=== PATIENT | male | born 1995 | race Two or more races ===

== ENCOUNTER 2021-10-01 17:39 | Emergency (ER) | payer OTHER ==
[~2021-10-01] VITALS: Ht 165.1 cm; Wt 65.3 kg
--- NOTE | 2021-10-01 17:39 | NUR ---
PT BIBRA [address] C/O METH USED. PT IS AAOX3, NOT IN RESPIRATORY DISTRESS, HOOKED TO V/S STABLE, KEPT RESTED AND COMFORTABLE. WILL CONTINUE TO MONITOR.
--- NOTE | 2021-10-01 21:38 | NUR ---
PT OK TO DISCHARGE PER DR FRANCES. Patient discharged to home in stable condition. Written and verbal after care instructions given. Patient verbalizes understanding of instruction.Patient is awake and alert to self, day, and place. PT ambulatory with a steady gait
[2021-10-01 21:39] VITALS: BP 119/71
== END 2021-10-01 21:39 | disposition home or self-care (01) ==
LOC: ER 17:44
DX: F15.10 Other stimulant abuse, uncomplicated (principal)

== ENCOUNTER 2021-10-02 00:13 | Inpatient (IN) | payer OTHER ==
[~2021-10-02] VITALS: Ht 165.1 cm; Wt 73.5 kg
--- NOTE | 2021-10-02 01:05 | NUR ---
TO ER BED 15. BIBRA [address] FOR BEHAVIORAL "ACTING BIZARRE". CONNECTED TO MONITOR. BELONGING OBTAINED AND SECURED. NOT IN RESPIRATORY DISTRESS. AWAITING MD NUNN
[2021-10-02] MEDS ORDERED: OLANZAPINE 10 MG VIAL IM ONE ×2 (01:06→01:30)
--- NOTE | 2021-10-02 01:10 | NUR ---
URINE COLLECTED AND SENT TO LAB.
--- NOTE | 2021-10-02 01:12 | NUR ---
FOREST RESOURCES PROFESSOR AT BEDSIDE FOR BLOOD DRAW.
[2021-10-02 01:32] LABS: BASOPHILS % (AUTO) 0.1 % (0.0-2.0); HEMATOCRIT 40 % (39-51); HEMOGLOBIN 13.9 g/dL (13.5-17.5); LYMPHOCYTES # (AUTO) 1.4 K/uL (0.8-4.8); LYMPHOCYTES % (AUTO) 14.8 % (20.0-44.0); MEAN CORPUSCULAR HGB CONC 35 g/dl (31.0-36.0); MEAN CORPUSCULAR VOLUME 88 fL (80-96); MONOCYTES # (AUTO) 0.8 K/uL (0.1-1.30); MONOCYTES % (AUTO) 8.4 % (2.0-12.0); NEUTROPHILS # (AUTO) 7.3 K/uL (1.8-8.9); NEUTROPHILS % (AUTO) 76.7 % (43.0-81.0); PLATELET COUNT (AUTO) 280 K/uL (150-450); RED BLOOD CELL COUNT(AUTO) 4.59 MIL/uL (4.5-6.0); WHITE BLOOD COUNT (AUTO) 9.6 K/uL (4.3-11.0)
[2021-10-02 01:37] LABS: BILIRUBIN,URINE SMALL (NEGATIVE); COLOR,URINE YELLOW (YELLOW); LEUKOCYTE ESTERASE ,URINE NEGATIVE (NEGATIVE); NITRITE, URINE NEGATIVE (NEGATIVE); PROTEIN,URINE TRACE mg/dl (NEGATIVE); UGLUCOSE NEGATIVE (NEGATIVE); UROBILINOGEN,URINE 0.2 EU/dL (0.2)
[2021-10-02 01:41] LABS: CALCIUM, SERUM 9.1 mg/dL (8.5-10.1); CARBON DIOXIDE 19 mmol/L (21-32); CHLORIDE 103 mmol/L (98-107); CREATININE 1.1 mg/dL (0.6-1.3); GLUCOSE 76 mg/dL (74-106); POTASSIUM 3.8 mmol/L (3.5-5.1); SODIUM SERUM 139 mmol/L (136-145); UREA NITROGEN, BLOOD 20 mg/dL (7-18)
[2021-10-02 01:47] LABS: ACETAMINOPHEN 0 ug/ml (10-30); ALANINE AMINOTRANSFERASE 35 U/L (12-78); ALBUMIN 4.7 g/dL (3.4-5.0); ALCOHOL, BLOOD < 3 mg/dL (0-0); ALKALINE PHOSPHATASE 78 U/L (46-116); ASPARTATE AMINOTRANSFERASE 49 U/L (15-37); BILIRUBIN,DIRECT 0.2 mg/dL (0.0-0.2); BILIRUBIN,TOTAL 0.9 mg/dL (0.2-1.0); TOTAL PROTEIN, SERUM 8.5 g/dL (6.4-8.2)
[2021-10-02] MEDS ORDERED: IV NS 0.9% 1,000 ML BAG IV ONE (03:00)
--- NOTE | 2021-10-02 06:23 | NUR ---
PROVIDED PT WITH WARM BLANKETS AND WATER. WILL CONTINUE TO MONITOR
[2021-10-02 06:49] LABS: CALCIUM, SERUM 8.1 mg/dL (8.5-10.1); CREATININE 0.9 mg/dL (0.6-1.3); POTASSIUM 3.8 mmol/L (3.5-5.1)
--- NOTE | 2021-10-02 07:59 | NUR ---
PATIENT AWAKE, AAOX3
--- NOTE | 2021-10-02 10:00 | NUR ---
Given Breakfast and po fluids (juice/milk/water) Tolerated well
--- NOTE | 2021-10-02 14:45 | NUR ---
RECEIVING BARN CUSTODIAN here for assessment. Repeat CPK requested - drawn by industrial yard brake coupler Tara
[2021-10-02] MEDS ORDERED: OLANZAPINE ZYDIS 5 MG TAB.RAPDIS PO ONE (15:30)
[2021-10-02] MEDS ORDERED: OLANZAPINE 5 MG TABLET ONE (15:50)
--- NOTE | 2021-10-02 16:30 | NUR ---
ER Provider Dr Holly aware of lab results - No orders at this time
[2021-10-02] MEDS ORDERED: IV NS 0.9% 1,000 ML IV ONE ×2 (18:00→23:00)
[2021-10-02] MEDS ORDERED: LORAZEPAM INJ 2 MG/ML VIAL IV ONE (19:00)
--- NOTE | 2021-10-02 21:04 | NUR ---
DE RESTING COMFORTABLY IN BED, URINAL PROVIDED. WILL CONTINUE TO MONITOR
--- NOTE | 2021-10-02 21:33 | NUR ---
CALLED [facility] TO [address] BONILLA
--- NOTE | 2021-10-02 22:11 | NUR ---
REPORT GIVEN TO LUISITO CORONA FOR KATEY
[2021-10-02] MEDS ORDERED: ONDANSETRON HCL/PF 4 MG/2 ML VIAL IVP PRN (23:00)
[2021-10-02] MEDS ORDERED: Z GUARD REMEDY 4 OZ OINT TP PRN (23:00)
[2021-10-02] MEDS ORDERED: ACETAMINOPHEN 325 MG TABLET PO PRN (23:00)
[2021-10-02] MEDS ORDERED: MAG HYDROX/AL HYDROX/SIMETH 30 ML UDC PO PRN (23:00)
[2021-10-02] MEDS ORDERED: IV D5/0.45 NACL 1,000 ML IV PRN (23:00)
[2021-10-02] MEDS ORDERED: MAGNESIUM HYDROXIDE 30 ML UDC PO PRN (23:00)
--- NOTE | 2021-10-02 23:45 | NUR ---
MS ACQUISITION ANALYST NOTES RECEIVED PATIENT FROM ED VIA GURNEY AT 2247. AMBULATORY, DISHEVELED. A/O X4. SPEAKS LITHUANIAN AND KOREAN. ABLE TO VERBALIZE NEEDS. NOT IN APPARENT DISTRESS. BREATHING EVEN AND UNLABORED. HAS LEFT ANTECUBITAL IV ACCESS #18G AND SALINE LOCKED. NO S/S OF INFILTRATION NOTED. ALL BELONGINGS ACCOUNTED FOR. PATIENT DOESN'T ANSWER WHEN I ASKED HIM ADMISSION QUESTIONS. OPENS EYES THEN WILL GO BACK TO SLEEP. SAFETY PRECAUTIONS IN PLACE. WILL CONTINUE PLAN OF CARE.
[2021-10-03] VITALS: BP 99/58
--- NOTE | 2021-10-03 03:10 | NUR ---
MS RN NOTE TRANSFERRED CARE TO [place] AT THIS TIME.
--- NOTE | 2021-10-03 04:03 | NUR ---
MS RN NOTES REPORT GIVEN TO TU FOR KATEY.
--- NOTE | 2021-10-03 06:38 | NUR ---
MS RN NOTE PATIENT MORE AWAKE THIS AM AND ASKING FOR FOOD. PASSED NURSING SWALLOW EVAL. OK TO CHANGE TO REGULAR DIET PER LABORER AMMUNITION ASSEMBLY REUBEN NOLEN NP.
--- NOTE | 2021-10-03 06:47 | NUR ---
MS RN CLOSING NOTE PATIENT IN BED WITH EYES CLOSED, EASY TO AROUSE. A/OX3. NO S/S OF APPARENT DISTRESS IN ROOM AIR. BREATHING EVEN AND UNLABORED. NO C/O PAIN. IV D5 1/2 NS RUNNING @125CC/HR. SAFETY IN PLACE. NEEDS ATTENDED. WILL ENDORSE TO MORNING SHIFT RN FOR CONTINUITY OF CARE.
[2021-10-03 07:20] LABS: BASOPHILS % (AUTO) 0.1 % (0.0-2.0); HEMATOCRIT 34 % (39-51); HEMOGLOBIN 11.6 g/dL (13.5-17.5); LYMPHOCYTES % (AUTO) 36.5 % (20.0-44.0); MEAN CORPUSCULAR HGB CONC 35 g/dl (31.0-36.0); MEAN CORPUSCULAR VOLUME 87 fL (80-96); MONOCYTES # (AUTO) 0.4 K/uL (0.1-1.30); MONOCYTES % (AUTO) 8.4 % (2.0-12.0); NEUTROPHILS # (AUTO) 2.9 K/uL (1.8-8.9); PLATELET COUNT (AUTO) 236 K/uL (150-450); RED BLOOD CELL COUNT(AUTO) 3.86 MIL/uL (4.5-6.0); WHITE BLOOD COUNT (AUTO) 5.4 K/uL (4.3-11.0)
[2021-10-03 07:33] LABS: ALBUMIN 3.2 g/dL (3.4-5.0); BILIRUBIN,TOTAL 0.4 mg/dL (0.2-1.0); CREATININE 0.7 mg/dL (0.6-1.3); MAGNESIUM 1.7 mg/dL (1.8-2.4); PHOSPHORUS 2.9 mg/dL (2.5-4.9); POTASSIUM 3.6 mmol/L (3.5-5.1); TOTAL PROTEIN, SERUM 6.3 g/dL (6.4-8.2)
--- NOTE | 2021-10-03 07:42 | NUR ---
MS RN OPENING NOTES: RECEIVED PATIENT ASLEEP AND EASY TO AROUSED BY STIMULI. A/OX3 AND ABLE TO VERBALIZED NEEDS. WITH IV ACCESS ON LAC G#18 WITH D5 1/2 NS @125ML/HR. NO SOB OR CARDIAC DISTRESS NOTED, ON ROOM AIR AND TOLERATING WELL. SAFETY PRECAUTIONARY MEASURES MAINTAINED: BED IN LOWEST POSITION AND LOCKED, WITH BED ALARM, SIDE RAILS X 2. CALL LIGHT IN EASY REACH FOR HELP/ASSISTANCE.
[2021-10-03 07:49] LABS: THYROID STIMULATING HORMONE 1.622 uIU/mL (0.358-3.74)
[2021-10-03 08:00] VITALS: BP 103/51
[2021-10-03 08:07] LABS: CALCIUM, SERUM 8.1 mg/dL (8.5-10.1)
[2021-10-03] MEDS ORDERED: PANTOPRAZOLE 40 MG VIAL IV SCH (09:00)
--- NOTE | 2021-10-03 09:20 | NUR ---
RN NOTES PATIENT SEEN KNEELING AT BEDSIDE W/ HEAD BOWED DOWN ON THE FLOOR. APPROACHED PATIENT AND ASKED IF HE IS FEELING OKAY. PATIENT VERBALIZED THAT HE IS PRAYING, NO COMPLAINT OF DISTRESS. OFFERED PILLOW TO SUPPORT KNEES BUT PATIENT POLITELY REFUSED. RIGHT TO EXERCISE BAPTIST PRACTICE RESPECTED.
--- NOTE | 2021-10-03 09:30 | NUR ---
UNABLE TO DO AN ECHOCARDIOGRAM. PT ON FLOOR PRAYING. WILL. TRY LATER. RN ADVISED.
--- NOTE | 2021-10-03 10:56 | NUR ---
SS recevied consult for ETOH and homelessness. SW attempted to meet with pt., but he asked to come back later. SW will follow-up at a later time.
[2021-10-03] MEDS ORDERED: Magnesium 1GM/D5W 100ML PREMIX 100 ML IV SCH (11:30)
--- NOTE | 2021-10-03 12:45 | NUR ---
RN NOTES PATIENT SEEN BY JEWEL HOLE DRILLER FOR CONSULT; CONSIDERS DARLIN LAMAR FOR VOLUNTARY PSYCH ADMISSION. DR. GALEAS MADE AWARE.
--- NOTE | 2021-10-03 12:55 | NUR ---
"SS Note: Pt. Is a 25-year-old male who demonstrates adequate insight to the reason for hospitalization. Per pt., he presents to the hospital to get better. Per EMR, pt. was brought in for bizarre behavior. Pt. was oriented x3, alert, and cooperative. During interview, pt. was capable of following directions and appeared unkempt. Pt.s speech was at a normal rate and pt.s mood was elevated. Pt. reported no hx of mental health, denies homicidal ideation. Pt. denies auditory hallucinations, visual hallucinations, paranoia, or delusions. Per pt., he uses methamphetamine. Pt. has been using for 3-4 years, been to rehab before but does not remember the name of facility. SW explored pt.s living situation. Per pt., his mom kicked him out due to drugs and will not let him back in. Pt. stated that he has no other place to go and wants voluntary psych admission to [facility]. Pt. is feeling depressed and suicidal. Plan: SW provided available resources and pt. accepted. Upon discharge, pt. wants voluntary admission to [facility]. SW will fax over pt.s clinicals once pt. is medically cleared. [facility] Info: [address] [place] [address] Tele: FAX: [phone] // [phone] Resources Provided: Year-round shelters: [place] [address] [place] [address] ; [place] [facility] [place] [address] [place] [address]; [place] [facility] Ztsarbg0603 [facility] [address] Winter Shelters: Mara Brooks [place] Provider: [facility] [place] Address: [address] [facility] [place], [address] # of Beds: 47 Population Served: [facility] 6 | [facility] Zulay Lopez Michelle Provider: Home at Last Address: [address] [facility], [address] # of Beds: 66 Population Served: [facility] [employer] [place] Provider: First to Serve Address: [address] [facility], [address] # of Beds: 56 Population Served: Coed Terrance Martinez Provider: /Ms. Devine'denzel House Address: [address] [facility], [address] # of Beds: 49 Population Served: Coed SPA 8 | [facility] Provider: First to Serve Address: [address] [facility], [address] # of Beds: 37 Population Served: Coed Hygiene: [place] [facility]: [address] [facility] ; [place] [facility] [address] [facility] ; [facility] [address] [place] . Food Resources: [place] Food [facility] at [facility]- 5700 [facility]; Meet Each Need with Dignity ([facility]) [address] [facility]; [facility] Food Pantry 4387 [facility]; [facility] 8531 [facility]. Mental Health resources provided: [facility] [address] [place], [place] [phone] ; [place] [facility] Mental Health [employer] [address] [facility] [address], [place], [place] [phone] ; Nadia Love [facility] Mental Health Urgent Care Center [address] [address] [place], [place] [phone] ; [place] [facility] [address] [place], [place] [phone] Healthcare Clinics: [facility] [address] [facility], [address] [place]. [place] ; [facility] Clinic [address] [facility] [address] [place] [address]; [facility] [address] [facility] [place] [address] [phone] Counseling--Outpatient [facility] [address], [address] [place], [place] [address] (Specializes in in-depth psychotherapy for emotional distress: anxiety, depression, interpersonal conflicts, life transitions, childhood abuse) [facility] Guidance Center [address] [place] [address] (Assist with solving problem marital difficulties, separation & divorce, aging parents, & grief, chronic & terminal illness) [facility] [address] [place] [address] (Deal with loss & grief, anxiety, marital difficulties) Homebound/Mental Health Services [address] [facility] [address] [place] [address] (Provide in-home mental services to people who are incapable of leaving their homes) Organization for Needs of the Elderly Senior Service/Resource Center [address] [place] [address] [facility] [address]ust[address] NguyenOxford, [place] [address] PSYCHIATRIC OUTPATIENT SERVICES [facility] Partial Hospitalization and Intensive Outpatient Program (Managed Care and [place] Only)[address] [facility] [phone] [facility] Partial Hospitalization and Outpatient [id number] [facility] [address] [place], [place] [phone] [facility] Mental Health Center [id number] [facility] [address] [place], [place] [phone] [facility] Partial Hospitalization and Outpatient Dxmrmis65631 [place], [phone] Substance Abuse resources provided included: [facility] Substance Abuse Self-Helpline (SAS) ; CRI -HELP [address]24 Counts Include 234 Beds At [facility]. [place] [address] ; [facility] [address] [facility] [address] ; [facility] Rehabilitation Program [address] [place] [address] ; [facility] [address] [facility] [address] ; [facility] 4940 Dante Roberson [facility] [address] ; Becka [facility] 909 [facility] [phone] ; [facility] Substance Abuse Helpline(SAS)[facility] ; [facility] ; [facility] [place]; [facility] [place]; [facility] [place]; I-ADARP Inter Agency Drug Abuse Recovery Dante Renae; [facility] [place]; [facility] Rhame; [facility]; [facility] [place]; Alcoholics Anonymous -SFV; Pr-Ynkn-Hbhwbul ; Marijuana Anonymous -SFV; Narcotics Anonymous www.na.org;"
--- NOTE | 2021-10-03 15:25 | NUR ---
Pt. signed homeless waiver and SW placed it in chart.
[2021-10-03 16:00] VITALS: BP 95/47
--- NOTE | 2021-10-03 18:49 | NUR ---
MS RN CLOSING NOTES: RECEIVED PATIENT ASLEEP AND EASY TO AROUSED BY STIMULI. A/OX3 AND ABLE TO VERBALIZED NEEDS. WITH IV ACCESS ON LAC G#18 WITH D5 1/2 NS @125ML/HR. NO SOB OR CARDIAC DISTRESS NOTED, NOTED WITH NORMAL AND UNLABORED BREATHING, ON ROOM AIR AND TOLERATING WELL. SAFETY PRECAUTIONARY MEASURES MAINTAINED: BED IN LOWEST POSITION AND LOCKED, WITH BED ALARM, SIDE RAILS X 2. CALL LIGHT IN EASY REACH FOR HELP/ASSISTANCE. CALL LIGHT IN EASY REACH FOR HELP. ENDORSED TO NEXT SHIFT FOR CONTINUITY OF CARE.
--- NOTE | 2021-10-03 19:45 | NUR ---
MS RN OPENING NOTES: RECEIVED PATIENT ASLEEP AND EASY TO AROUSED BY STIMULI. A/OX3 AND ABLE TO VERBALIZED NEEDS. WITH IV ACCESS ON LAC G#18 WITH D5 1/2 NS @125ML/HR. NO SOB/DISTRESS NOTED, ON ROOM AIR AND TOLERATING WELL.CALL LIGHT WITHIN REACH. SAFETY PRECAUTIONARY MEASURES MAINTAINED: BED IN LOWEST POSITION AND LOCKED, WITH BED ALARM, SIDE RAILS X 2.WILL CONTINUE TO MONITOR.
[2021-10-03 20:00] VITALS: BP 114/66
--- NOTE | 2021-10-04 07:30 | NUR ---
MS RN OPENING NOTES RECEIVED PATIENT AWAKE AND EASY TO AROUSED BY STIMULI. A/OX3 AND ABLE TO VERBALIZED NEEDS. WITH IV ACCESS ON LAC G#18 WITH D5 1/2 NS @125ML/HR. NO SOB OR CARDIAC DISTRESS NOTED, NOTED WITH NORMAL AND UNLABORED BREATHING, ON ROOM AIR AND TOLERATING WELL. SAFETY PRECAUTIONARY MEASURES MAINTAINED: BED IN LOWEST POSITION AND LOCKED, WITH BED ALARM, SIDE RAILS X 2. CALL LIGHT IN EASY REACH FOR HELP/ASSISTANCE. CALL LIGHT IN EASY REACH FOR HELP. WILL CONTINUE TO MONITOR FOR CONTINUITY OF CARE.
[2021-10-04 08:00] VITALS: BP 107/40
[2021-10-04] MEDS ORDERED: PANTOPRAZOLE 40 MG TABLET.DR PO SCH (09:00)
[2021-10-04 15:24] LABS: CALCIUM, SERUM 9.1 mg/dL (8.5-10.1); CREATININE 0.9 mg/dL (0.6-1.3); POTASSIUM 3.3 mmol/L (3.5-5.1)
[2021-10-04 16:00] VITALS: BP 107/40
[2021-10-04] MEDS ORDERED: POTASSIUM CHLORIDE 20 MEQ TAB.PRT.SR PO SCH (18:00)
--- NOTE | 2021-10-04 19:00 | NUR ---
RN MS NOTES PT IN BED, AWAKE, NOT SPEAKING AT THIS TIME, NO SIGN OF PAIN OR DISTRESS, MOM AT BEDSIDE, PICKING THE PT UP FOR DISCHARGE, PT DOES NOT WANT TO MOVE OR SPEAK, REFUSED PM MEDS AND REFUSED SKIN ASSESSMENT AND PHOTOS, DISCHARGE AND MEDICATION INSTRUCTION PROVIDED TO MOM, MOM IS WORRIED AND SAID THAT SHE CAN'T BRING THE PT HOME LIKE THAT, DR. HICKS AND DR. VEGA INFORMED, CHARGE NURSE SPEAKING WITH PT'S MOM GINA, AWAITING FOR FUTHER ORDERS.
--- NOTE | 2021-10-04 19:12 | NUR ---
RN MS NOTES RECEIVED ORDER FROM DR. VEGA TO CALL CRISIS TEAM FOR EVAL FOR POSSIBLE HOLD, WILL ENDORSE TO RANCH RIDER NURSE FOR CONTINUITY OF CARE.
--- NOTE | 2021-10-04 19:30 | NUR ---
MS/RN NOTE RECEIVED PATIENT RESTING IN BED WITH MOM AT BEDSIDE. PATIENT IS ALERT AND ORIENTED X 3. NO S/SX OF PAIN NOTED AT THIS TIME. QUIET BUT ANSWERING QUESTIONS. IV SITE TO LEFT AC INTACT AND PATENT. ORDER IN PLACE TO CONTACT CRISIS TEAM. DISTRICT SALES REPRESENTATIVE CONTACTING AT THIS TIME. WILL CONTINUE TO MONITOR.
[2021-10-04 20:00] VITALS: BP 115/58
--- NOTE | 2021-10-04 20:45 | NUR ---
MS/RN NOTE SOCIAL SERVICES DIRECTOR CONTACTED CRISIS TEAM WHO STATES THEY HAVE ALREADY SEEN THE PATIENT AND THERE IS NO NEED FOR ANOTHER EVALUATION. MOM REFUSING TO TAKE HOME PATIENT AT THIS TIME. WILL CONTACT DR. KAVIN HICKS REGARDING DISCHARGE.
--- NOTE | 2021-10-04 20:55 | NUR ---
MS/RN NOTE LEFT VOICEMAIL FOR DR. HICKS INFORMING HIM OF MOM'S REFUSAL TO TAKE PATIENT HOME. PATIENT NEEDS PLACEMENT IF UNABLE TO GO BACK HOME.
--- NOTE | 2021-10-04 21:00 | NUR ---
MS/RN NOTE PATIENT AND MOM BOTH VERBALIZING WANTING TO DISCHARGE TONIGHT. ALL PAPERWORK REVIEWED AND SIGNED. BELONGINGS LIST REVIEWED AND SIGNED. ALL BELONGINGS ACCOUNTED FOR AT DISCHARGE. PATIENT'S IV TO LEFT AC DISCONTINUED WITH PRESSURE DRESSING APPLIED. NO DRAINAGE NOTED. ID BAND REMOVED. PATIENT AND MOM GIVEN ALL DISCHARGE PAPERWORK. PATIENT DISCHARGED TO HOME AT APPROX. 2100.
== END 2021-10-04 21:00 | disposition home or self-care (01) | DRG 812 ==
LOC: ER 00:17 → MED 21:55
PROVIDERS: ADMIT Registered Nurse; ATTEND Nurse Practitioner Acute Care
DX: T43.621A Poisoning by amphetamines, accidental (unintentional), initial encounter (principal); G92.8 Other toxic encephalopathy; E44.1 Mild protein-calorie malnutrition; M62.82 Rhabdomyolysis; F15.151 Other stimulant abuse with stimulant-induced psychotic disorder with hallucinations; E88.09 Other disorders of plasma-protein metabolism, not elsewhere classified; E86.0 Dehydration; Z20.822 Contact with and (suspected) exposure to COVID-19; Y92.9 Unspecified place or not applicable; E83.42 Hypomagnesemia; Z91.19 Patient's noncompliance with other medical treatment and regimen; F20.9 Schizophrenia, unspecified; Z72.89 Other problems related to lifestyle
CPT/HCPCS: 36415; 80048-TC; 80053-TC; 80076-TC; 82550-TC; 82553; 83735-TC; 84100-TC; 84443-TC; 85025-TC; 87081-TC; 93307-TC; C9113; C9803; G0378; G0480; J2060; J3475; J3490; J7030

== ENCOUNTER 2021-11-18 05:25 | Emergency (ER) | payer OTHER ==
[~2021-11-18] VITALS: Ht 165.1 cm; Wt 65.3 kg
--- NOTE | 2021-11-18 06:15 | NUR ---
PATIENT [id number] FROM APARTMENT. STATED USED CRYSTAL METH USE. PATIENT IS A/O X 3, RR EVEN, NO ACUTE DISTRESS NOTED. PATIENT CONNECTED TO JUDGE AND POX. WILL CONTINUE TO MONITOR
--- NOTE | 2021-11-18 06:23 | NUR ---
URINE COLLECTED SENT TO LAB
--- NOTE | 2021-11-18 06:23 | NUR ---
COVID SWAB COLLECTED AND SENT TO LAB
--- NOTE | 2021-11-18 06:23 | NUR ---
LAB AT BEDSIDE
[2021-11-18 06:39] LABS: BASOPHILS % (AUTO) 0.2 % (0.0-2.0); HEMATOCRIT 43 % (39-51); HEMOGLOBIN 14.7 g/dL (13.5-17.5); LYMPHOCYTES # (AUTO) 1.5 K/uL (0.8-4.8); LYMPHOCYTES % (AUTO) 15.3 % (20.0-44.0); MEAN CORPUSCULAR HGB CONC 34 g/dl (31.0-36.0); MEAN CORPUSCULAR VOLUME 87 fL (80-96); MONOCYTES # (AUTO) 0.8 K/uL (0.1-1.30); MONOCYTES % (AUTO) 8.4 % (2.0-12.0); NEUTROPHILS # (AUTO) 7.3 K/uL (1.8-8.9); NEUTROPHILS % (AUTO) 76.1 % (43.0-81.0); PLATELET COUNT (AUTO) 323 K/uL (150-450); RED BLOOD CELL COUNT(AUTO) 4.94 MIL/uL (4.5-6.0); WHITE BLOOD COUNT (AUTO) 9.6 K/uL (4.3-11.0)
[2021-11-18 06:50] LABS: ALANINE AMINOTRANSFERASE 41 U/L (12-78); ALBUMIN 4.8 g/dL (3.4-5.0); ALKALINE PHOSPHATASE 73 U/L (46-116); ASPARTATE AMINOTRANSFERASE 24 U/L (15-37); BILIRUBIN,DIRECT 0.3 mg/dL (0.0-0.2); CALCIUM, SERUM 9.7 mg/dL (8.5-10.1); CARBON DIOXIDE 24 mmol/L (21-32); CHLORIDE 103 mmol/L (98-107); GLUCOSE 83 mg/dL (74-106); POTASSIUM 3.7 mmol/L (3.5-5.1); SODIUM SERUM 140 mmol/L (136-145); TOTAL PROTEIN, SERUM 8.8 g/dL (6.4-8.2); UREA NITROGEN, BLOOD 21 mg/dL (7-18)
[2021-11-18 06:54] LABS: BILIRUBIN,URINE NEGATIVE (NEGATIVE); COLOR,URINE YELLOW (YELLOW); LEUKOCYTE ESTERASE ,URINE NEGATIVE (NEGATIVE); NITRITE, URINE NEGATIVE (NEGATIVE); PROTEIN,URINE NEGATIVE (NEGATIVE); UGLUCOSE NEGATIVE (NEGATIVE)
[2021-11-18 07:34] LABS: BACTERIA,URINE None seen /HPF (None Seen); SQUAMOUS EPITHELIAL CELL,UR Few /HPF (None Seen)
[2021-11-18 07:35] LABS: ACETAMINOPHEN 0 ug/ml (10-30); ALCOHOL, BLOOD < 3 mg/dL (0-0)
--- NOTE | 2021-11-18 08:00 | NUR ---
PT ASLEEPY NO PAIN WATING FOR SOCIALE WORKER
--- NOTE | 2021-11-18 10:14 | NUR ---
Pt. is currently refusing everything. SW is trying to get ahold of family [[phone]], left VM.
--- NOTE | 2021-11-18 10:42 | NUR ---
Pt. is requesting voluntary psych admission to [facility]. Per pt., he has a plan to hurt himself if he leaves the hospital. SW updated MD and faxed clinicals to [facility] [fax: [phone]].
--- NOTE | 2021-11-18 10:51 | NUR ---
"SS Note: Pt. Is a 26-year-old male who demonstrates adequate insight to the reason for hospitalization. Per pt., he does not know why he is here in the hospital. Per EMR, pt. was brought from apartment due to using crystal meth. Pt. labs came out positive for marijuana, not meth. Per MD., pt. is not taking his medication and his family wants him to get help. Pt. was oriented x2-3, alert, and was hardly cooperative. During interview, pt. was capable of following directions and appeared unkempt. Pt.'s speech was at a normal rate and pt.'s mood was elevated. Pt. denies homicidal ideation. Pt. denies auditory hallucinations, visual hallucinations, paranoia, or delusions. Pt. stated that he does not have suicidal ideation but has a plan if he leaves the hospital. SW explored pt.'s living situation. Per pt., he lives with his mom, but she kicked him out due to drugs. Pt. was here a month due to the same reason. Pt. states he has no place to go. Plan: CARLOS provided available resources and pt. accepted. Pt. is requesting voluntary psych admission to [facility]. CARLOS updated MD Viveros and faxed clinicals to [facility] [ fax: [phone]]. Resources Provided: Year-round shelters: [place] [address] [place], [place] [phone] ; [place] [facility] [place] [address] [place] [address]; [place] [facility] [id number] [facility] [address] Winter Shelters: Mara Brooks [place] Provider: [facility] [place] Address: [address] [facility] [place], [address] # of Beds: 47 Population Served: [facility] 6 | [facility] Zulay Lopez Michelle Provider: Home at Last Address: [address], [address] # of Beds: 66 Population Served: Radhames Nashise [place] Provider: First to Serve Address: [address] [facility], [address] # of Beds: 56 Population Served: Coed Terrance [place] Provider: /Ms. Devine's House Address: [address] [facility], [address] # of Beds: 49 Population Served: Coed SPA 8 | [place] Provider: First to Serve Address: [address] [facility] Hospital[facility] [address], [address] # of Beds: 37 Population Served: Coed Hygiene: [place] [facility]: [address] [place] ; [place] [facility] [address] [facility] [place] ; [facility] 6907 [facility] [place] . Food Resources: [place] Food Pantry at [facility]- 5700 [facility]; Meet Each Need with Dignity ([facility]) [address] [facility]; [facility] Food Pantry 4319 [facility]; [facility] 8558 [facility]. Mental Health resources provided: [facility] [address] [place], [place] [phone] ; [facility] Mental Health [place] [address] [facility] [address], [place], [place] [phone] ; Nadia Love [facility] Urgent [facility] [address] [place] [address] ; [place] [facility] [address] [place], [place] [phone] Healthcare Clinics: [facility] 6551 [facility], [address] [place]. [place] ; [facility] [address] [facility] [address] [place] [address]; [facility] [address] [place] [address] [phone] Counseling--Outpatient [facility] [address] [facility], [address] [place], [place] [address] (Specializes in in-depth psychotherapy for emotional distress: anxiety, depression, interpersonal conflicts, life transitions, childhood abuse) [facility] [address] [place] [address] (Assist with solving problem marital difficulties, separation & divorce, aging parents, & grief, chronic & terminal illness) [facility] [address] [place] [address] (Deal with loss & grief, anxiety, marital difficulties) Homebound/Mental Health Services [address] [facility] [address] [place] [address] (Provide in-home mental services to people who are incapable of leaving their homes) Organization for Needs of the Elderly Senior Service/Resource Center [address] [place] [address] [facility] 6514 [place] [address] PSYCHIATRIC OUTPATIENT SERVICES [facility] Partial Hospitalization and Intensive Outpatient Program (Managed Care and [place] Only)[address] [facility] [phone] [facility] Partial Hospitalization and Outpatient [id number] [facility]. [address] [place], [place] [phone] [facility] Health [place] Vpn[address]240 [facility] [address] [place], [place] [phone] [facility] Partial Hospitalization and Outpatient Bfgllms64888 [place], [phone] Substance Abuse resources provided included: [facility] Substance Abuse Self-Helpline ([facility]) ; CRI -HELP [address] [facility]. [place] [address] ; [facility] [address] [facility] [address] ; [facility] Rehabilitation Program [address] [facility]. [place] [phone] ; [facility] [address] [facility] [phone] ; [facility] 4940 Dante Roberson [facility] [address] ; Becka [facility] 909 [facility] [phone] ; [facility] Substance Abuse Helpline([facility] ; [facility] Family Counseling ; [facility] [place]; [facility] [place]; Cri[facility]Help [place]; I-ADARP Inter Agency Drug Abuse Recovery Dante Roberson; [facility] [place]; [place] [facility] [place]; [facility] [place]; [facility]'s [employer] [place]; Alcoholics Anonymous -SFV; Pa-Qjfz-Zjncwnc ; Marijuana Anonymous -SFV; Narcotics Anonymous www.na.org;"
--- NOTE | 2021-11-18 11:29 | NUR ---
Pt. accepted to [facility] under Dr. Mahan. Number to report [phone]. ETA: after 1300. Per Mike, he will set up transportation.
--- NOTE | 2021-11-18 11:46 | NUR ---
REPORT GIVEN TO MANJEET CORONA FOR KATEY
--- NOTE | 2021-11-18 11:57 | NUR ---
Per Mike, ETA is 1300.
--- NOTE | 2021-11-18 12:15 | NUR ---
LUNCH TRAY PROVIDED, TOLERATED WELL
[2021-11-18 12:35] VITALS: BP 114/77
--- NOTE | 2021-11-18 13:05 | NUR ---
PICKED UP BY DARLIN RM IN STABLE CONDITION
== END 2021-11-18 17:31 ==
LOC: ER 05:28
DX: F15.10 Other stimulant abuse, uncomplicated (principal); R45.851 Suicidal ideations; Z20.822 Contact with and (suspected) exposure to COVID-19
CPT/HCPCS: 36415; 80048; 80076; 80143; 80307; 80320; 81001; 85025; 87426; 99285; C9803; G0480

== ENCOUNTER 2024-11-07 21:18 | Emergency (ER) | payer MEDICAID, OTHER ==
[~2024-11-07] VITALS: Ht 170.2 cm; Wt 65.8 kg
[2024-11-07 21:52] VITALS: BP 129/70; TEMP 98.4
[2024-11-07 22:20] VITALS: O2SAT 98
[2024-11-07] MEDS ORDERED: HYDR453.3 TP (22:27)
[2024-11-07] MEDS ORDERED: IBUPROFEN 600 MG TABLET ONE (22:29)
[2024-11-07] MEDS: IBUPROFEN 600 MG TABLET PO ONE (22:38)
== END 2024-11-07 22:49 | disposition home or self-care (01) ==
LOC: ER 22:01
DX: L30.8 Other specified dermatitis (principal); R21 Rash and other nonspecific skin eruption; F19.10 Other psychoactive substance abuse, uncomplicated

== ENCOUNTER 2025-01-20 19:10 | Emergency (ER) | payer MEDICAID, OTHER ==
[~2025-01-20] VITALS: Ht 165.1 cm; Wt 68.0 kg
[~2025-01-20 19:10] MED LIST: HYDR453.3 TP
[2025-01-20 20:19] LABS: PLATELET COUNT (AUTO) 260 K/uL (150-450); RED BLOOD CELL COUNT(AUTO) 4.36 MIL/uL (4.5-6.0); RED CELL DISTRIBUTION WIDTH 13.6 % (11.5-15.0); WHITE BLOOD COUNT (AUTO) 7.4 K/uL (4.3-11.0)
[2025-01-20 20:29] LABS: CALCIUM, SERUM 9.3 mg/dL (8.5-10.1); CREATININE 0.9 mg/dL (0.6-1.3); SODIUM SERUM 142 mmol/L (136-145); UREA NITROGEN, BLOOD 13 mg/dL (7-18)
[2025-01-20 20:30] LABS: APPEARANCE,URINE CLEAR (CLEAR); BLOOD, URINE NEGATIVE Ery/uL (NEGATIVE); LEUKOCYTE ESTERASE ,URINE NEGATIVE (NEGATIVE); NITRITE, URINE NEGATIVE (NEGATIVE); UGLUCOSE NEGATIVE (NEGATIVE)
[2025-01-20 20:34] LABS: ADD URINE CULTURE NO; AMPHETAMINE, URINE NEGATIVE (NEGATIVE); BARBITURATE, URINE NEGATIVE (NEGATIVE); BENZODIAZEPINE, URINE NEGATIVE (NEGATIVE); CANNABINOID, URINE NEGATIVE (NEGATIVE); COCCAINE, URINE NEGATIVE (NEGATIVE); OPIATE, URINE NEGATIVE (NEGATIVE); SQUAMOUS EPITHELIAL CELL,UR Rare /HPF (None Seen)
[2025-01-20 20:34] LABS: ALCOHOL, BLOOD < 3 mg/dL (0-10); ASPARTATE AMINOTRANSFERASE 11 U/L (15-37); TOTAL PROTEIN, SERUM 7.3 g/dL (6.4-8.2)
[2025-01-20 20:35] LABS: FINE GRANULAR CASTS,URINE Rare /LPF (None Seen); URINE AMORPHOUS URATE Few /HPF (None Seen)
[2025-01-20] MEDS ORDERED: OLANZAPINE 10 MG VIAL IM ONE (23:28)
[2025-01-20] MEDS: OLANZAPINE 10 MG VIAL IM ONE (23:30)
[2025-01-21 12:25] VITALS: BP 112/67; TEMP 98.4; O2SAT 98
== END 2025-01-21 12:25 ==
LOC: ER 19:18
DX: F20.9 Schizophrenia, unspecified (principal); Z79.899 Other long term (current) drug therapy; Z20.822 Contact with and (suspected) exposure to COVID-19
CPT/HCPCS: 99285; 96372; 85025; 80048; 80076; 81001; 36415; 87426; 80143; 80320; 80307; J3490; G0480